=== PATIENT | male | born 1980 | race Caucasian/White ===

== ENCOUNTER 2022-04-04 12:59 | Emergency (ER) | payer SELFPAY ==
[~2022-04-04] VITALS: Ht 160 cm; Wt 81.6 kg
[2022-04-04 13:04] VITALS: BP_SYST 142
--- NOTE | 2022-04-04 13:04 | NUR ---
Patient triaged and placed in waiting room. VSS and patient appears in no acute distress at this time. Accompanied by SELF, awaiting available bed, and MD notified of need for MSE.
[2022-04-04] MEDS ORDERED: KETOROLAC TROMETHAMINE 60 MG/2 ML VIAL IM ONE (14:00)
--- NOTE | 2022-04-04 14:31 | NUR ---
ER DR. HUMPHREY EXAMINING PT IN TRIAGE
[2022-04-04] MEDS ORDERED: KETOROLAC TROMETHAMINE 30 MG VIAL IVP ONE (15:15)
[2022-04-04] MEDS ORDERED: MORPHINE 4 MG INJ. 4 MG/ML VIAL IVP ONE (15:15)
--- NOTE | 2022-04-04 16:00 | NUR ---
# 18 gauge angiocath placed to RAC. Use of asceptic technique. Opsite placed over site. Blood return noted. Blood for lab drawn from site. Flushed with 10 cc of normal saline. No evidence of infiltration noted. Patient tolerated well.
--- NOTE | 2022-04-04 16:10 | NUR ---
PATIENT BROUGHT IN WITH COMPLAIINING OF SEVERE LOWER BACK PAIN X 4 DAYS AFTER PICKING UP 1 YR OLD DAUGHTER. PATIENT UNABLE TO BEAR WEIGHT. DENIES ANY LOSS OF BOWEL OR BLADDER. PAIN 10/10
--- NOTE | 2022-04-04 18:00 | NUR ---
PHLEB AT BEDSIDE FOR BLOOD DRAW
[2022-04-04] MEDS ORDERED: HYDROmorphone 1 MG/ML INJ. CARTRIDGE IVP ONE (18:15)
[2022-04-04 18:26] LABS: BASOPHILS % (AUTO) 0.3 % (0.0-2.0); EOSINOPHILS % (AUTO) 0.5 % (0.0-4.0); HEMATOCRIT 39.4 % (36-54); HEMOGLOBIN 13.8 g/dL (14.0-18.0); LYMPHOCYTES # (AUTO) 3.3 K/uL (1.0-5.5); LYMPHOCYTES % (AUTO) 38.1 % (20.5-51.5); MEAN CORPUSCULAR HEMOGLOBIN 28 pg (27-31); MEAN CORPUSCULAR HGB CONC 35 % (32-36); MEAN CORPUSCULAR VOLUME 81 fL (79.0-98.0); MONOCYTES # (AUTO) 0.6 K/uL (0.0-1.0); MONOCYTES % (AUTO) 6.4 % (1.7-9.3); NEUTROPHILS # (AUTO) 4.8 K/uL (1.8-7.7); NEUTROPHILS % (AUTO) 54.7 % (40.0-70.0); PLATELET COUNT (AUTO) 273 K/uL (130-430); RED BLOOD CELL COUNT(AUTO) 4.87 MIL/uL (4.2-6.2); RED CELL DISTRIBUTION WIDTH 13.1 % (9.0-15.0); WHITE BLOOD COUNT (AUTO) 8.7 K/uL (4.8-10.8)
[2022-04-04 18:35] LABS: CALCIUM 8.8 mg/dL (8.4-11.0); CREATININE 0.78 mg/dL (0.55-1.30)
[2022-04-04 18:40] LABS: ALBUMIN 4.1 g/dL (3.4-4.8); TOTAL BILIRUBIN 0.4 mg/dL (0.0-1.0)
--- NOTE | 2022-04-04 19:16 | NUR ---
COVID SAMPLE COLLECTED AND SENT TO LAB
[2022-04-04] MEDS ORDERED: ONDANSETRON HCL 4 MG/2 ML VIAL IVP ONE (19:30)
[2022-04-04] MEDS ORDERED: NAPR-690 PO (19:53)
[2022-04-04 19:58] VITALS: BP_SYST 132
--- NOTE | 2022-04-04 19:58 | NUR ---
Patient given written and verbal discharge instructions and verbalizes understanding. ER MD discussed with patient the results and treatment provided. Patient in stable condition. ID arm band removed. IV catheter removed intact and dressing applied, no active bleeding. Rx of NAPROXEN given. Patient educated on pain management and to follow up with PMD. Pain Scale 0/10 Opportunity for questions provided and answered. Medication side effect fact sheet provided.
== END 2022-04-04 19:58 | disposition home or self-care (01) ==
LOC: SED 12:59
DX: M54.50 Low back pain, unspecified (principal); Z79.899 Other long term (current) drug therapy; Z20.822 Contact with and (suspected) exposure to COVID-19
CPT/HCPCS: 99284; 96374; 96375; 87426; 80053; 82962; 85025; 36415; 72110; J1885; J2405; J1170; J2270